=== PATIENT | male | born 1935 | race Caucasian/White ===

== ENCOUNTER 2017-12-02 11:21 | Inpatient (IN) | payer MEDICARE ==
[~2017-12-02] VITALS: Ht 177.8 cm; Wt 98.0 kg
[2017-12-02 12:19] LABS: BASOPHILS % 0.7 % (0.0-1.0); EOSINOPHILS # (AUTO) 0.3 (0.0-0.4); EOSINOPHILS % 4.6 % (0.0-6.0); HEMATOCRIT 27.1 % (38.2-49.6); HEMOGLOBIN 9.3 g/dL (14.0-18.0); LYMPHOCYTES # (AUTO) 0.9 (1.0-3.2); LYMPHOCYTES % 15.1 % (18.0-39.1); MEAN CORPUSCULAR HEMOGLOBIN 31.4 pg (28-32); MEAN CORPUSCULAR HGB CONC 34.3 g/dL (31-35); MEAN CORPUSCULAR VOLUME 91.6 fL (81-99); MONOCYTES # (AUTO) 0.5 (0.2-0.8); MONOCYTES % 7.9 % (4.4-11.3); NEUTROPHILS # (AUTO) 4.4 (2.1-6.9); NEUTROPHILS % 71.5 % (38.7-80.0); PLATELET COUNT 159 x10e3/uL (140-360); RED BLOOD COUNT 2.96 x10e6/uL (4.3-5.7); RED CELL DISTRIBUTION WIDTH 13.4 % (11.7-14.4)
[2017-12-02 12:26] LABS: CLARITY,URINE CLEAR (CLEAR); COLOR,URINE YELLOW (YELLOW)
[2017-12-02 12:27] LABS: BILIRUBIN,URINE NEGATIVE (NEGATIVE); KETONES,URINE NEGATIVE (NEGATIVE); LEUKOCYTE ESTERASE ,URINE NEGATIVE (NEGATIVE); NITRITE,URINE NEGATIVE (NEGATIVE); PROTEIN,URINE DIPSTICK NEGATIVE (NEGATIVE); URINE UROBILINOGEN 0.2 mg/dL (0.2 - 1)
[2017-12-02 12:29] LABS: INR 1.18; PROTHROMBIN TIME 14.1 seconds (11.9-14.5)
[2017-12-02 12:30] LABS: PARTIAL THROMBOPLASTIN TIME 34.1 seconds (23.8-35.5)
[2017-12-02 12:38] LABS: ALBUMIN 3.2 g/dL (3.5-5.0); ALBUMIN/GLOBULIN RATIO 0.6 (0.8-2.0); ANION GAP 15.1 mmol/L (8-16); CALCIUM 9.4 mg/dL (8.4-10.2); CREATININE, SERUM 1.91 mg/dL (0.72-1.25); POTASSIUM 4.1 mmol/L (3.5-5.1)
[2017-12-02 12:42] LABS: EPITHELIAL CELLS,URINE RARE /LPF
[2017-12-02 12:44] LABS: CREATINE KINASE MB 3.3 ng/mL (0-5.0)
--- NOTE | 2017-12-02 12:59 | Diagnostic Imaging Report ---
PROCEDURE: A single AP view of the chest. COMPARISON: None. INDICATIONS: CHEST PAIN FINDINGS: Lines/tubes: None. Lungs: Bibasilar nodular airspace opacities. 1.9 cm nodule projects over the right midlung region between the right posterior seventh and eighth ribs. Pleura: There is no pleural effusion or pneumothorax. Heart and mediastinum: The heart and the mediastinum are unremarkable. Atherosclerotic calcifications. Bones: No acute bony abnormality. Degenerative changes of the thoracic spine. IMPRESSION: Bilateral nodular densities are indeterminate, but possible etiologies include metastatic disease and infectious etiologies. CT of the chest with contrast may provide additional information for further characterization. Dictated by: Domingo Jimenez M.D. on 12/02/2017 at 13:01 Electronically approved by: Domingo Jimenez M.D. on 12/02/2017 at 13:01
[2017-12-02] MEDS ORDERED: IRON PO (16:33)
[2017-12-02] MEDS ORDERED: [UNRECOGNIZED DRUG - OTHER] PO (16:33)
[2017-12-02] MEDS ORDERED: VITAMIN D PO (17:33)
[2017-12-02] MEDS ORDERED: PLAVIX75 MG PO (17:33)
[2017-12-02] MEDS ORDERED: ATORVASTATIN CA20 MG PO (17:33)
[2017-12-02] MEDS ORDERED: ASPIR 8181 MG PO (17:33)
[2017-12-02] MEDS ORDERED: GABAPENTIN100 MG PO (17:33)
[2017-12-02] MEDS ORDERED: FUROSEMIDE40 MG PO (17:33)
[2017-12-02] MEDS ORDERED: DOXAZOSIN MESYLA2 MG PO (17:33)
[2017-12-02] MEDS ORDERED: RAMIPRIL5 MG PO (17:33)
[2017-12-02] MEDS ORDERED: VIT B12 PO (17:33)
[2017-12-02] MEDS ORDERED: FOLIC ACID1 MG PO (17:33)
[2017-12-02] MEDS ORDERED: FINASTERIDE5 MG PO (17:33)
[2017-12-02] MEDS ORDERED: METOPROLOL TART25 MG PO (17:33)
--- OUTSIDE RECORDS SUMMARY | 2017-12-02 17:51 | XMS REPORT ---
[facility] Address Unknown Phone Unavailable Care Team Providers Care Society Editor Name Role Phone LASHAWN GONZALEZ Unavailable Unavailable Problems This patient has no known problems. Allergies, Adverse Reactions, Alerts This patient has no known allergies or adverse reactions. Medications This patient has no known medications. Results Test Description Test Time Test Comments Text Results Atomic Results Result Comments CHEST SINGLE (PORTABLE) [place] [address] Patient Name: KRIS LEPE MR #: [id number] : 1935 Age/Sex: 82/M Req #: [id number] Adm Physician: Ordered by: LASHAWN GONZALEZ MD Report #: [id number] Location: ER Room/Bed: Procedure: [id number] DX/CHEST SINGLE (PORTABLE) Exam Date: Exam Time: REPORT STATUS: Signed PROCEDURE: A single AP view of the chest. COMPARISON: None. INDICATIONS: CHEST PAIN FINDINGS: Lines/tubes: None. Lungs: Bibasilar nodular airspace opacities. 1.9 cm nodule projects over the right midlung region between the right posterior seventh and eighth ribs. Pleura: There is no pleural effusion or pneumothorax. Heart and mediastinum: The heart and the mediastinum are unremarkable. Atherosclerotic calcifications. Bones: No acute bony abnormality. Degenerative changes of the thoracic spine. IMPRESSION: Bilateral nodular densities are indeterminate, but possible etiologies include metastatic disease and infectious etiologies. CT of the chest with contrast may provide additional information for further characterization. Dictated by: Amy Talbot M.D. on 12/02/2017 at 13:01 Electronically approved by: Amy Talbot M.D. on 12/02/2017 at 13:01 Dictated By: AMY TALBOT MD [id number] Transcribed By: LEVI on 12/02/17 1301 COPY TO: LASHAWN GONZALEZ MD
--- OUTSIDE RECORDS SUMMARY | 2017-12-02 17:51 | XMS REPORT | Clinical Summary ---
Author Author [facility] Address Unknown Phone Unavailable Care Team Providers Care Shake Loader Name Role Phone PCP Unavailable Allergies No Known Allergies Current Medications Prescription Sig. Disp. Refills Start End Date Status Date cyanocobalamin 1000 MCG Take 1,000 mcg by mouth Active tablet daily. doxazosin (CARDURA) 4 MG Take 4 mg by mouth Active tablet nightly. finasteride (PROSCAR) 5 Take 5 mg by mouth daily. Active mg tablet fluticasone (FLONASE) 50 2 sprays by Nasal route Active mcg/actuation nasal spray daily. furosemide (LASIX) 40 MG Take 40 mg by mouth 2 Active tablet (two) times daily. metoprolol (LOPRESSOR) 25 Take 25 mg by mouth 2 Active MG tablet (two) times daily. nitroglycerin (NITROSTAT) Place 0.4 mg under the Active 0.4 MG SL tablet tongue every 5 (five) minutes as needed for Chest pain Put 1 pill under tongue every 5min as needed for chest pain.No more than 3 doses in 15min.Call 911 if pain is unrelieved 5min after 1st dose . potassium chloride SA Take 20 mEq by mouth 2 Active (K-DUR,KLOR-CON) 20 MEQ (two) times daily. tablet ramipril (ALTACE) 5 MG Take 5 mg by mouth daily. Active capsule ergocalciferol (VITAMIN Take 50,000 Units by Active D2) 50,000 unit capsule mouth once a week. clopidogrel (PLAVIX) 75 Take 1 tablet (75 mg 90 tablet 3 05/04/20 Active mg tablet total) by mouth daily. 16 metFORMIN (GLUCOPHAGE) Take 1 tablet (1,000 mg 0 05/04/20 Active 1000 MG tablet total) by mouth 2 (two) 16 times daily with breakfast and dinner Start Sunday 05/06. aspirin 81 MG EC tablet Take 1 tablet (81 mg 0 05/04/20 Active total) by mouth daily 16 Start after you finish 1 month of the aspirin 325 mg. atorvastatin (LIPITOR) 80 Take 1 tablet (80 mg 30 tablet 11 05/04/20 05/04/20 MG tablet total) by mouth nightly. 16 17 Active Problems Problem Noted Date Angina pectoris ([facility]) 04/29/2016 Chest pain 04/29/2016 Angina at rest ([facility]) 04/29/2016 Family History Medical History Relation Name Comments Heart disease Brother Hyperlipidemia Daughter Cancer Father Cancer Son Diabetes Son Relation Name Status Comments Brother Daughter Father Son Social History Tobacco Use Types Packs/Day Years Used Date Never Smoker Alcohol Use Drinks/Week oz/Week Comments No Sex Assigned at Date Recorded Not on file Last Filed Vital Signs Not on file Plan of Treatment Not on file Implants Implanted Type Area Field Map Editor Device Expiration Model / Identifier Date Serial / Lot Promus Premier 3.0mm X 12mm Stent [employer] 06/20/2018 [id number] Implanted: Qty: 1 on 05/03/2016 by [employer] [id number] / Duarte Craig MD / [id number] Promus Premier 2.5mm X 16mm Stent [employer] 05/05/2017 [id number] Implanted: Qty: 1 on 05/03/2016 by [employer] [id number] / Duarte Craig MD / [id number] Promus Premier 3.0mm X 20mm Stent [employer] 04/18/2017 [id number] Implanted: Qty: 1 on 05/03/2016 by [employer] 0300 / Duarte Craig MD / [id number] Results Not on fileafter 12/01/2016
[2017-12-02] MEDS ORDERED: CEFTRIAXONE SOD 1 GM VIAL IV SCH (18:00)
[2017-12-02] MEDS ORDERED: AZITHROMYCIN 500MG/NS 250 ML 250 ML IV SCH (18:00)
--- NOTE | 2017-12-02 18:54 | Diagnostic Imaging Report ---
PROCEDURE: CT CHEST WITHOUT CONTRAST CT scan of the chest WITHOUT intravenous contrast, using standard protocol. TECHNIQUE: The chest was scanned utilizing a multidetector helical scanner from the apex to the level of the adrenal glands. No IV contrast was administered per physician's request. Coronal and sagittal multiplanar reformations were obtained. COMPARISON: [facility], DX, CHEST SINGLE (PORTABLE), 12/02/2017, 12:39. INDICATIONS: ABNORMAL CXR FINDINGS: Lines/tubes: None. Lungs and Airways: Subpleural reticulation, groundglass opacities and associated traction bronchiectasis in bilateral lower lobes (for example series 3, image 40-42). Mild subpleural reticulation in bilateral upper lobes Confluent subpleural reticulation/scarring in the right upper lobe against the superior aspect of the major fissure (coronal image 75, and sagittal image 22), which corresponds to the previously described nodular density on chest x-ray. Focal scarring and bronchiectasis in the anterior left upper lobe (series 3, image 21). No consolidation, pulmonary nodules or masses. Airways are clear, without endobronchial lesions. Pleura: No effusion, or pneumothorax. Heart and mediastinum: Thyroid is unremarkable. Mild cardiomegaly. Extensive atherosclerotic calcification of coronary arteries and to a lesser degree thoracic aorta and aortic branches. The aorta is non-aneurysmal. Pulmonary artery is mildly enlarged, measuring 3.4 cm. Likely stent in the circumflex artery Lymph nodes: No mediastinal, hilar, or axillary adenopathy. Abdomen: Limited views of the upper abdomen show no abnormality within the visualized pancreas, or left kidney. The adrenal glands are normal. 6 mm hypodense lesion in hepatic segment V (series 2, image 58), which is too small to characterize, but likely representing small cysts. Mild splenomegaly, measuring 14.7 cm in AP diameter. Bones: No aggressive lytic lesion. 2.4 x 2.0 cm lucent lesion with prominent trabeculae in the T7 vertebral body consistent with hemangioma. Degenerative changes in the thoracic spine. Mild bilateral gynecomastia. IMPRESSION: 1. findings consistent with interstitial lung disease/fibrotic changes, predominantly involving the lower lobes. 2. Confluent, subpleural reticulation/scarring in the right upper lobe, which corresponds to the previously described abnormality on chest x-ray. 3. Mild cardiomegaly. 4. Mild enlargement of the pulmonary artery, suggesting pulmonary hypertension. 5. Mild splenomegaly. Arturo Slaughter M.D. Dictated by: Arturo Slaughter M.D. on 12/02/2017 at 18:55 Electronically approved by: Arturo Slaughter M.D. on 12/02/2017 at 18:55
[2017-12-02 20:00] VITALS: BP 177/81
[2017-12-02] MEDS ORDERED: SODIUM CHLORIDE 0.9% 250ML 250 ML ONE (20:05)
[2017-12-02] MEDS: BENZONATATE 100 MG CAP PO SCH (20:05)
[2017-12-02] MEDS: METOPROLOL TARTRATE 50 MG TAB PO SCH (20:05)
[2017-12-02] MEDS ORDERED: ATORVASTATIN 40 MG TAB PO SCH (21:00)
[2017-12-02] MEDS ORDERED: ATORVASTATIN 20 MG TAB PO SCH (21:00)
[2017-12-03] VITALS: BP 139/56
[2017-12-03] MEDS ORDERED: METOLAZONE5 MG PO (01:08)
[2017-12-03] MEDS ORDERED: GUAIFENESIN-CO118 M1 PO (01:08)
[2017-12-03 04:00] VITALS: BP 124/74
[2017-12-03 06:24] LABS: BASOPHILS % 0.4 % (0.0-1.0); EOSINOPHILS # (AUTO) 0.3 (0.0-0.4); EOSINOPHILS % 5.9 % (0.0-6.0); HEMATOCRIT 23.5 % (38.2-49.6); LYMPHOCYTES # (AUTO) 0.8 (1.0-3.2); LYMPHOCYTES % 15.7 % (18.0-39.1); MEAN CORPUSCULAR HEMOGLOBIN 31.6 pg (28-32); MEAN CORPUSCULAR VOLUME 92.9 fL (81-99); MONOCYTES # (AUTO) 0.4 (0.2-0.8); MONOCYTES % 8.1 % (4.4-11.3); NEUTROPHILS # (AUTO) 3.7 (2.1-6.9); NEUTROPHILS % 69.3 % (38.7-80.0); PLATELET COUNT 124 x10e3/uL (140-360); RED BLOOD COUNT 2.53 x10e6/uL (4.3-5.7); RED CELL DISTRIBUTION WIDTH 13.4 % (11.7-14.4)
[2017-12-03 07:04] LABS: ANION GAP 15.9 mmol/L (8-16); CREATININE, SERUM 1.73 mg/dL (0.72-1.25); MAGNESIUM 1.7 MG/DL (1.3-2.1); POTASSIUM 3.9 mmol/L (3.5-5.1)
[2017-12-03 07:07] LABS: THYROID STIMULATING HORMONE 2.162 uIU/mL (0.350-4.940)
[2017-12-03 07:58] VITALS: BP 146/75
[2017-12-03] MEDS ORDERED: ASPIRIN 325 MG TAB PO SCH (09:00)
[2017-12-03] MEDS ORDERED: ASPIRIN 81 MG ENTERIC COATED PO SCH (09:00)
[2017-12-03 09:10] VITALS: BP 146/75
[2017-12-03] MEDS: METOPROLOL TARTRATE 50 MG TAB PO SCH (09:10)
[2017-12-03] MEDS: BENZONATATE 100 MG CAP PO SCH (09:10)
[2017-12-03 11:58] VITALS: BP 133/73
--- NOTE | 2017-12-03 15:43 | Discharge Summary ---
PRIMARY CARE PHYSICIAN: Dr. Bailee Suazo. FINAL DIAGNOSIS: Interstitial fibrosis. SECONDARY DIAGNOSES: 1. Stage 3 chronic kidney disease due to diabetes. 2. Chronic anemia. 3. Hyponatremia, getting better, asymptomatic. 4. Coronary artery disease with previous stents. CONSULTANTS: None. PROCEDURES/STUDIES PERFORMED: Chest CT. HISTORY: Per H\T\P. HOSPITAL COURSE: The patient was admitted empirically and he was given IV Rocephin and IV Azithromycin. Given chest x-ray finding, CT was done which showed predominantly lower lobe interstitial fibrosis. This information was given to the patient and his extensively. I have also updated his primary care physician as well. The patient does not need any more antibiotics. The patient also has stage 3 chronic kidney disease and also chronic anemia. Again, all of these have been discussed with the patient extensively. CONDITION ON DISCHARGE: Stable. DISCHARGE MEDICATIONS: Please see medication reconciliation form. The patient was seen and examined today. It took 35 minutes total to discharge this patient. SOLEDAD VIRAMONTES M.D. Job#: [id number] CC: DR. BAILEE SUAZO
== END 2017-12-03 13:54 | disposition home or self-care (01) | DRG 197 ==
LOC: ER 11:21 → MED/SURG2 17:48
PROVIDERS: ADMIT Internal Medicine; ATTEND Internal Medicine
DX: J84.10 Pulmonary fibrosis, unspecified (principal); E87.1 Hypo-osmolality and hyponatremia; E11.22 Type 2 diabetes mellitus with diabetic chronic kidney disease; N18.3 Chronic kidney disease, stage 3 (moderate); D64.9 Anemia, unspecified; I25.10 Atherosclerotic heart disease of native coronary artery without angina pectoris; Z95.5 Presence of coronary angioplasty implant and graft; E78.5 Hyperlipidemia, unspecified; Z79.82 Long term (current) use of aspirin; Z79.02 Long term (current) use of antithrombotics/antiplatelets
CPT/HCPCS: 36415; 71045; 71250; 80048; 80053; 81001; 82550; 82553; 82948; 83735; 83880; 84443; 84484; 85025; 85610; 85730; 87040; 87400; 93005; 93306; 99284; J0456; J0696; J7050

== ENCOUNTER 2022-02-16 15:57 | Observation (INO) | payer MEDICARE ==
[~2022-02-16] VITALS: Ht 177.8 cm; Wt 98.0 kg
[~2022-02-16 15:57] MED LIST: ASPIR 8181 MG PO; ATORVASTATIN CA20 MG PO; DOXAZOSIN MESYLA2 MG PO; FINASTERIDE5 MG PO; FOLIC ACID1 MG PO; FUROSEMIDE40 MG PO; GABAPENTIN100 MG PO; GUAIFENESIN-CO118 M1 PO; IRON PO; METOLAZONE5 MG PO; METOPROLOL TART25 MG PO; PLAVIX75 MG PO; RAMIPRIL5 MG PO; VIT B12 PO; VITAMIN D PO; [UNRECOGNIZED DRUG - OTHER] PO
[2022-02-16] MEDS ORDERED: ONDANSETRON HCL INJ 2MG/ML 2ML 2 MG/ML VIAL IV ONE (16:14)
[2022-02-16] MEDS ORDERED: LACTATED RINGER'S 500 ML IV ONE (16:15)
[2022-02-16 16:22] LABS: BASOPHILS % 0.5 % (0.0-1.0); EOSINOPHILS # (AUTO) 0.1 (0.0-0.4); EOSINOPHILS % 1.4 % (0.0-6.0); HEMATOCRIT 34.6 % (38.2-49.6); HEMOGLOBIN 10.6 g/dL (14.0-18.0); LYMPHOCYTES # (AUTO) 0.8 (1.0-3.2); LYMPHOCYTES % 13.7 % (18.0-39.1); MEAN CORPUSCULAR HEMOGLOBIN 32.1 pg (28-32); MEAN CORPUSCULAR HGB CONC 30.6 g/dL (31-35); MEAN CORPUSCULAR VOLUME 104.8 fL (81-99); MONOCYTES # (AUTO) 0.3 (0.2-0.8); MONOCYTES % 5.5 % (4.4-11.3); NEUTROPHILS # (AUTO) 4.4 (2.1-6.9); NEUTROPHILS % 78.2 % (38.7-80.0); PLATELET COUNT 113 x10e3/uL (140-360); RED CELL DISTRIBUTION WIDTH 14.3 % (11.7-14.4)
[2022-02-16 16:37] LABS: ANION GAP 16.9 mmol/L (8-16); CALCIUM 8.3 mg/dL (8.4-10.2); CREATININE, SERUM 1.5 mg/dL (0.72-1.25); POTASSIUM 3.9 mmol/L (3.5-5.1)
[2022-02-16 16:41] LABS: ALBUMIN 3.1 g/dL (3.5-5.0); BILIRUBIN,DIRECT 0.4 mg/dL (0.0-0.5)
[2022-02-16] MEDS ORDERED: HYDRALAZINE HCL 20 MG/ML VIAL IV ONE (18:00)
[2022-02-16] MEDS ORDERED: ACETAMINOPHEN 325 MG TAB PO ONE (18:30)
[2022-02-16] MEDS ORDERED: ONDANSETRON HCL INJ 2MG/ML 2ML 2 MG/ML VIAL IV STA (20:19)
[2022-02-16] MEDS ORDERED: Morphine 4mg INJECTION 4 MG/ML INJ IV ONE (20:30)
[2022-02-16] MEDS ORDERED: Morphine 4mg INJECTION 4 MG/ML INJ ONE (20:33)
[2022-02-16] MEDS ORDERED: ONDANSETRON HCL INJ 2MG/ML 2ML 2 MG/ML VIAL ONE (20:33)
[2022-02-16] MEDS: CARVEDILOL 3.125 MG TAB PO SCH (21:00)
[2022-02-16] MEDS ORDERED: ONDANSETRON HCL INJ 2MG/ML 2ML 2 MG/ML VIAL IV PRN (21:00)
[2022-02-16] MEDS ORDERED: Morphine 2mg Syringe 2 MG/ML SYR IV PRN (21:00)
[2022-02-16] MEDS ORDERED: ACETAMINOPHEN 325 MG TAB PO PRN (21:00)
[2022-02-16] MEDS: HYDRALAZINE HCL 20 MG/ML VIAL IV PRN (21:45)
[2022-02-16] MEDS ORDERED: HYDROMORPHONE 1MG/1ML INJ IV PRN (22:15)
[2022-02-16] MEDS ORDERED: DILTIAZEM HCL 5 MG/ML 5 ML VIAL IV STA (22:45)
[2022-02-16] MEDS ORDERED: DIGOXIN INJ 0.25 MG/ML 2 ML AMP IV STA (22:45)
[2022-02-16] MEDS ORDERED: PROMETHAZINE 12.5MG/ NACL 0.9% 12.5 MG/50 ML BAG IV ONE (22:45)
[2022-02-16] MEDS ORDERED: PROMETHAZINE 12.5MG/ NACL 0.9% 50 ML ONE (22:46)
[2022-02-16] MEDS ORDERED: DILTIAZEM HCL VIAL 5 ML ONE (23:03)
[2022-02-16] MEDS ORDERED: DIGOXIN INJ 0.25 MG/ML 2 ML AMP ONE (23:03)
[2022-02-17] VITALS (9 sets, daily range): BP systolic 116–178; BP diastolic 47–67
[2022-02-17] MEDS: HYDRALAZINE HCL 20 MG/ML VIAL IV PRN (02:17)
[2022-02-17 02:34] LABS: CREATINE KINASE MB 2.3 ng/mL (0-5.0)
[2022-02-17 06:11] LABS: BASOPHILS % 0.6 % (0.0-1.0); EOSINOPHILS # (AUTO) 0.1 (0.0-0.4); EOSINOPHILS % 2.5 % (0.0-6.0); HEMATOCRIT 30.9 % (38.2-49.6); HEMOGLOBIN 9.4 g/dL (14.0-18.0); LYMPHOCYTES # (AUTO) 0.9 (1.0-3.2); LYMPHOCYTES % 18.5 % (18.0-39.1); MEAN CORPUSCULAR HEMOGLOBIN 31.9 pg (28-32); MEAN CORPUSCULAR HGB CONC 30.4 g/dL (31-35); MEAN CORPUSCULAR VOLUME 104.7 fL (81-99); MONOCYTES # (AUTO) 0.4 (0.2-0.8); MONOCYTES % 8.4 % (4.4-11.3); NEUTROPHILS # (AUTO) 3.4 (2.1-6.9); NEUTROPHILS % 69.4 % (38.7-80.0); PLATELET COUNT 106 x10e3/uL (140-360); RED BLOOD COUNT 2.95 x10e6/uL (4.3-5.7); RED CELL DISTRIBUTION WIDTH 14.5 % (11.7-14.4)
[2022-02-17 06:40] LABS: ANION GAP 15.8 mmol/L (8-16); CREATININE, SERUM 1.39 mg/dL (0.72-1.25); POTASSIUM 3.8 mmol/L (3.5-5.1)
[2022-02-17 07:01] LABS: THYROID STIMULATING HORMONE 2.547 uIU/mL (0.350-4.940)
[2022-02-17] MEDS ORDERED: BENZONATATE200 MG PO (07:51)
[2022-02-17] MEDS ORDERED: GLIMEPIRIDE2 MG PO (07:51)
[2022-02-17] MEDS ORDERED: PROVENTIL HFA6.7 GM INH (07:51)
[2022-02-17] MEDS ORDERED: FLUTICASONE-VI1 EAC1 INH (07:51)
[2022-02-17] MEDS ORDERED: DORZOLAMIDE HCL10 ML OP (07:51)
[2022-02-17] MEDS ORDERED: JANUVIA50 MG PO (07:51)
[2022-02-17] MEDS ORDERED: NITROSTAT0.4 MG SL (07:51)
[2022-02-17] MEDS ORDERED: DORZOLAMIDE-TIM10 ML OP (07:51)
[2022-02-17] MEDS: DRONABINOL 2.5MG PO SCH ×2 (09:01→16:17)
[2022-02-17] MEDS: CARVEDILOL 3.125 MG TAB PO SCH ×2 (09:01→22:04)
[2022-02-17 09:09] LABS: CREATINE KINASE MB 2.1 ng/mL (0-5.0)
[2022-02-17] MEDS ORDERED: SODIUM CHLORIDE 0.45% 1,000 ML IV ONE (13:15)
[2022-02-17] MEDS ORDERED: ALBUTEROL/IPRATROPIUM 3 ML NEB NEB PRN (13:15)
[2022-02-17] MEDS ORDERED: METOPROLOL TARTRATE 25 MG TAB PO SCH (17:00)
[2022-02-17] MEDS ORDERED: ACETAMIN/BUTALBITAL/CAFFEINE TAB PO PRN (17:45)
[2022-02-17] MEDS ORDERED: HYDROMORPHONE 1MG/1ML INJ IV PRN (17:45)
[2022-02-17] MEDS ORDERED: ATORVASTATIN 40 MG TAB PO SCH (21:00)
[2022-02-17] MEDS ORDERED: GABAPENTIN 300 MG CAP PO SCH (21:00)
[2022-02-17] MEDS ORDERED: DOXAZOSIN MESYLATE 2 MG TAB PO SCH (21:00)
[2022-02-18] VITALS: BP 134/61
[2022-02-18 06:28] LABS: BASOPHILS % 0.4 % (0.0-1.0); EOSINOPHILS # (AUTO) 0.2 (0.0-0.4); EOSINOPHILS % 2.9 % (0.0-6.0); HEMATOCRIT 29.1 % (38.2-49.6); HEMOGLOBIN 8.8 g/dL (14.0-18.0); LYMPHOCYTES # (AUTO) 0.9 (1.0-3.2); LYMPHOCYTES % 17.9 % (18.0-39.1); MEAN CORPUSCULAR HEMOGLOBIN 32.1 pg (28-32); MEAN CORPUSCULAR HGB CONC 30.2 g/dL (31-35); MEAN CORPUSCULAR VOLUME 106.2 fL (81-99); MONOCYTES # (AUTO) 0.5 (0.2-0.8); MONOCYTES % 8.9 % (4.4-11.3); NEUTROPHILS # (AUTO) 3.6 (2.1-6.9); NEUTROPHILS % 69.5 % (38.7-80.0); PLATELET COUNT 89 x10e3/uL (140-360); RED BLOOD COUNT 2.74 x10e6/uL (4.3-5.7); RED CELL DISTRIBUTION WIDTH 14.5 % (11.7-14.4)
[2022-02-18 07:08] LABS: ANION GAP 12.8 mmol/L (8-16); CALCIUM 7.8 mg/dL (8.4-10.2); CREATININE, SERUM 1.55 mg/dL (0.72-1.25); MAGNESIUM 1.9 MG/DL (1.3-2.1); POTASSIUM 3.8 mmol/L (3.5-5.1)
[2022-02-18 07:28] LABS: THYROID STIMULATING HORMONE 2.786 uIU/mL (0.350-4.940)
[2022-02-18] MEDS: DRONABINOL 2.5MG PO SCH (07:30)
[2022-02-18 07:56] VITALS: BP 136/54
[2022-02-18 08:00] VITALS: BP 136/54
[2022-02-18] MEDS ORDERED: BALSAM PERU/CASTOR OIL 60 GM OINT...G. TP SCH (09:00)
[2022-02-18] MEDS ORDERED: CLOPIDOGREL BISULFATE 75 MG TAB PO SCH (09:00)
[2022-02-18] MEDS ORDERED: ASPIRIN 81 MG CHEW TAB PO SCH (09:00)
[2022-02-18] MEDS ORDERED: FOLIC ACID 1 MG TAB PO SCH (09:00)
[2022-02-18] MEDS ORDERED: FINASTERIDE 5 MG TAB PO SCH (09:00)
[2022-02-18] MEDS: CARVEDILOL 3.125 MG TAB PO SCH (09:53)
[2022-02-18 11:35] VITALS: BP 146/63
[2022-02-18] MEDS ORDERED: ONDANSETRON HCL 4 MG ORAL DISINTEGRATING TAB PO PRN (14:45)
== END 2022-02-18 15:52 | disposition home or self-care (01) ==
LOC: ER 17:02 → ERHOLD 19:27 → MED/SURG3 23:50
PROVIDERS: ADMIT Internal Medicine; ATTEND Internal Medicine
DX: E86.0 Dehydration (principal); E11.22 Type 2 diabetes mellitus with diabetic chronic kidney disease; I12.9 Hypertensive chronic kidney disease with stage 1 through stage 4 chronic kidney disease, or unspecified chronic kidney disease; N18.30 Chronic kidney disease, stage 3 unspecified; J84.10 Pulmonary fibrosis, unspecified; Z20.822 Contact with and (suspected) exposure to COVID-19; R63.0 Anorexia; Z68.31 Body mass index [BMI] 31.0-31.9, adult; D64.9 Anemia, unspecified; I48.91 Unspecified atrial fibrillation; Z91.81 History of falling; R53.1 Weakness; Z79.899 Other long term (current) drug therapy
CPT/HCPCS: 36415 ×3; 70450; 71045; 80048 ×3; 80076; 82550 ×2; 82553; 82607; 82948 ×2; 83036; 83540 ×2; 83690; 83735; 83880; 84443 ×2; 84466 ×2; 84484 ×2; 85025 ×3; 93005; 97116; 97161; 99251; 99284; C9113; G0378 ×3; J0360; J1160; J1170; J2270; J2405; J2550; J7121; Q0167 ×2; U0002